=== PATIENT | male | born 1960 | race American Indian/Alaskan Native ===

== ENCOUNTER 2021-07-14 18:46 | Emergency (ER) | payer MEDICARE ==
[2021-07-14 23:49] LABS: Alanine Aminotransferase 22 units/L (7-56); Albumin 4.6 g/dL (3.9-5); BUN/Creatinine Ratio 18; Blood Urea Nitrogen 16 mg/dL (9-20); Calcium 9.3 mg/dL (8.4-10.2); Hemolysis Index 5
[2021-07-15 00:08] LABS: Hematocrit 41.1 % (35.5-45.6); Hemoglobin 13.6 gm/dl (11.8-15.2); Mean Corpuscular HGB Conc 33 % (32-34); Mean Corpuscular Volume 89 fl (84-94); Platelet Count 130 K/mm3 (140-440); Red Blood Count 4.64 M/mm3 (3.65-5.03); Red Cell Distribution Width 13.3 % (13.2-15.2)
[2021-07-15 07:05] LABS: Benzodiazepines Screen,Urine Negative; Cannabinoid Screen,Urine Negative; Methadone Screen,Urine Negative; Opiate Screen,Urine Negative
[2021-07-15 07:14] LABS: Bilirubin,Urine NEG (Negative); Blood,Urine NEG (Negative); Color,Urine Yellow (Yellow); Protein,Urine <15 mg/dL mg/dL (Negative); WBC,Urine < 1.0 /HPF (0.0-6.0)
[2021-07-15 07:20] LABS: Amphetamine Screen,Urine Positive; Cocaine Screen,Urine Positive
--- NOTE | 2021-07-15 08:10 | Emergency Department Report ---
ED Psych HPI - General Chief Complaint: Medical Clearance Stated Complaint: LT LEG PAIN/DETOX Time Seen by Provider: 07/15/21 07:43 Source: EMS Mode of arrival: Ambulatory - History of Present Illness Initial Comments: Mr. Noe is a 61-year-old male who reports history of depression and multiple substance abuse including alcohol, methamphetamine who presented wanting medical clearance to be able to go to rehab. Patient denies any suicide or homicidal ideation at this point. Patient also denies any chest pain, shortness of breath or palpitation. Patient said he has been abusing alcohol since he was 15 years old. He also mentioned that he has been into rehab twice with some improvement and sobriety for about 2 months. Patient denies any other modifying or associated factors. - Related Data Allergies Allergy/AdvReac Type Severity Reaction Status Date / Time No Known Allergies Allergy Unverified 07/14/21 20:00 ED Review of Systems ROS: Stated complaint: LT LEG PAIN/DETOX Other details as noted in HPI Comment: All other systems reviewed and negative Psychiatric: anxiety, depression, other (Wanting sobriety). denies: auditory hallucinations, visual hallucinations, homicidal thoughts, suicidal thoughts ED Past Medical Hx - Past Medical History Hx Hypertension: Yes Additional medical history: ETOH and drug abuse, gout, high cholesterol, GERD - Social History Smoking Status: Current Every Day Smoker Substance Use Type: Alcohol ED Physical Exam - General Limitations: No Limitations General appearance: alert, in no apparent distress - Head Head exam: Present: atraumatic, normocephalic, normal inspection - Eye Eye exam: Present: normal appearance - ENT ENT exam: Present: normal exam, normal orophraynx - Neck Neck exam: Present: normal inspection, full ROM. Absent: tenderness - Respiratory Respiratory exam: Present: normal lung sounds bilaterally. Absent: respiratory distress - Cardiovascular Cardiovascular Exam: Present: regular rate, normal rhythm, normal heart sounds - GI/Abdominal GI/Abdominal exam: Present: soft. Absent: tenderness - Extremities Exam Extremities exam: Present: normal inspection, full ROM, normal capillary refill - Back Exam Back exam: Present: normal inspection - Neurological Exam Neurological exam: Present: alert, altered, oriented X3 - Psychiatric Psychiatric exam: Present: normal affect, normal mood - Skin Skin exam: Present: warm, dry, intact, normal color ED Course Vital Signs 07/14/21 07/15/21 07/15/21 19:51 11:16 11:49 Temperature 98.6 F 97.7 F Pulse Rate 98 H 81 Respiratory 16 16 Rate Blood Pressure 165/117 134/76 [Right] O2 Sat by Pulse 98 100 99 Oximetry 07/15/21 13:02 Temperature 97.7 F Pulse Rate 81 Respiratory 16 Rate Blood Pressure 134/76 [Right] O2 Sat by Pulse 100 Oximetry - Reevaluation(s) Reevaluation #1: 07/15/21 08:08 Here with multiple drug abuse including cocaine and alcohol and methamphetamine and wanted medical clearance to go to rehab. We will go ahead and get psych routine labs that include urine drug screen and continue to monitor patient. Reevaluation #2: 07/15/21 12:21 Patient noted with elevated total creatinine kinase of 635 likely as a result of dehydration and drug use patient reassured and educated about illicit drug use. Patient plans to follow-up and willing to go to rehab. Also noted with slightly low potassium at 3.5 and sodium at 135 I encouraged patient to increase daily fluids and to take food that is in potassium. 07/15/21 12:23 We will go ahead and have case management specialist/manager social media consult on patient and continue to monitor. Reevaluation #3: 07/15/21 13:06 Patient was evaluated by psych and cleared to be discharged home and was given social contact for further evaluation and treatment ED Medical Decision Making - Lab Data Result diagrams: 07/14/21 23:06 07/14/21 23:06 Critical care attestation.: If time is entered above; I have spent that time in minutes in the direct care of this critically ill patient, excluding procedure time. ED Disposition Clinical Impression: Drug abuse, Cocaine abuse, Methamphetamine abuse, Alcohol abuse Disposition: 01 HOME / SELF CARE / HOMELESS Is pt being admited?: No Does the pt Need Aspirin: No Condition: Stable Instructions: Alcohol Use Disorder, Stimulant Use Disorder-Cocaine, Substance Use Disorder and Mental Illness, Alcohol Abuse and Dependence Information, Adult, Methamphetamines Use Disorder Additional Instructions: It is very important that you call and follow-up with your psychiatrist as needed Called the contact given to you as regarding your rehab Please do not hesitate to call or return to emergency room if your symptoms worsen Referrals: RUTHIE ADN MD [Staff Physician] - 3-5 Days Time of Disposition: 13:09
--- NOTE | 2021-07-15 13:22 | Consultation ---
History of Present Illness - Reason for Consult Consult date: 07/15/21 Reason for consult: mental health evaluation - History of Present Psychiatric Illness The patient is a 61 year old male with history of depression ad polysubstance abuse. The patient was seen this morning. He is calm, alert and oriented x3. He reports daily drug use which he reports doing for years now. He reports being at multiple psychiatric inpatient facilities for detox and rehab x 2. He reports longest sobriety period as 2 months. The patient reports stressors such as " disappointments, and rejection." The patient denies any current suicidal/homicidal ideation and denies hallucinations. PAST PSYCHIATRIC HISTORY Diagnoses:Depression, Polysubstance abuse Suicide attempts or Self-harm behavior: Denies Prior psychiatric hospitalizations:Denies Substance Abuse history:Meth, Cocaine, Opiate and alcohol Previous psychiatric medications tried: Unknown Outpatient treatment:unknown PAST MEDICAL HISTORY: none reported Family Psychiatric History: None reported or documented SOCIAL HISTORY Marital Status: Single Living Arrangements: Lives with sister Employment Status: Unemployed Access to guns/weapons: Denies Education: 8th grade History of Abuse: none reported Legal History: none reported REVIEW OF SYSTEMS Constitutional: Negative for weight loss ENT: Negative for stridor Respiratory: Negative for cough or hemoptysis All other systems reviewed and are negative MENTAL STATUS EXAMINATION General Appearance and Behavior: Age appropriate, good hygiene, wearing appropriate clothes, poor eye contact, cooperative polite with questioning. Cooperation: Participating/engaged, guarded Psychomotor Behavior: unremarkable and within normal limits Mood: Ok Affect and affective range: congruent with mood Thought Process: goal directed Thought Content: reality oriented Speech: Normal volume, Regular rate and rhythm, Intellectual Functioning: Average Suicidal Ideation: Denies Homicidal Ideation: Denies Hallucinations: Denies Delusions: None Impulse Control: Normal Insight and Judgment: Limited insight and judgment, Memory: Normal, Attention: Normal, Orientation: Alert, oriented, Assessment and Plan (1) Major depressive disorder (2)Polysubstance disorder Current Visit: Yes Status: Acute Treatment Continue home meds.. Start Sertraline 25mg po daily Sitter: Per primary Medical: Per primary Disposition: Do not recommend acute inpatient psychiatric treatment. junior mechanical engineer will provide patient with psychiatric outpatient resources. Case staffed with Dr. Leyva Will sign off. Thank you Medications and Allergies Medications and Allergies Allergies Allergy/AdvReac Type Severity Reaction Status Date / Time No Known Allergies Allergy Unverified 07/14/21 20:00 Home Medications Medication Instructions Recorded Confirmed Last Taken Type Sertraline [Zoloft] 25 mg PO QDAY 30 Days #30 tab 07/15/21 Unknown Rx Mental Status Exam - Vital signs Last Vital Signs Temp 97.7 F 07/15/21 13:02 Pulse 81 07/15/21 13:02 Resp 16 07/15/21 13:02 BP 134/76 07/15/21 13:02 Pulse Ox 100 07/15/21 13:02 Results Result Diagrams: 07/14/21 23:06 07/14/21 23:06 Abnormal lab results 07/14/21 07/14/21 07/14/21 Range/Units 23:06 23:06 23:06 Plt Count 130 L (140-440) K/mm3 Sodium 135 L (137-145) mmol/L Potassium 3.5 L (3.6-5.0) mmol/L Chloride 97.8 L (98-107) mmol/L Glucose 110 H (75-100) mg/dL Total Creatine Kinase 635 H (55-170) units/L Salicylates < 0.3 L (2.8-20.0) mg/dL Acetaminophen (10.0-30.0) ug/mL 07/14/21 Range/Units 23:06 Plt Count (140-440) K/mm3 Sodium (137-145) mmol/L Potassium (3.6-5.0) mmol/L Chloride (98-107) mmol/L Glucose (75-100) mg/dL Total Creatine Kinase (55-170) units/L Salicylates (2.8-20.0) mg/dL Acetaminophen 5.0 L (10.0-30.0) ug/mL All other labs normal.
[2021-07-15 15:02] VITALS: BP 136/90
== END 2021-07-15 15:51 | disposition home or self-care (01) ==
LOC: ED 18:46
DX: F14.10 Cocaine abuse, uncomplicated (principal); F15.20 Other stimulant dependence, uncomplicated; F10.10 Alcohol abuse, uncomplicated; F17.200 Nicotine dependence, unspecified, uncomplicated; I10 Essential (primary) hypertension
CPT/HCPCS: 36415; 80053; 80307; 80320; 81001; 82550; 83735; 85027; 99284; G0480

== ENCOUNTER 2021-07-30 10:06 | Emergency (ER) | payer SELFPAY ==
--- NOTE | 2021-07-30 11:42 | XRay Report ---
LEFT ANKLE 3 VIEWS INDICATION: pain. COMPARISON: None. IMPRESSION: No acute fracture or bone lesion is identified. Chronic healed fracture of the distal f ibula is suspected, correlate with history. There are mild to moderate degenerative changes at the ti biotalar joint. The hindfoot is otherwise unremarkable. There is also been previous internal fixation of the first metatarsal which is partially imaged. No soft tissue abnormality is appreciated. Signer Name: Alexis Boothe Jr, MD Signed: 07/30/2021 11:38 AM Workstation Name: [id number]
[2021-07-30] MEDS ORDERED: IBUPROFEN 800 MG TAB PO ONE (11:51)
--- NOTE | 2021-07-30 11:52 | Emergency Department Report ---
ED Lower Extremity HPI - General Chief Complaint: Extremity Injury, Lower Stated Complaint: ANKLE PAIN Time Seen by Provider: 07/30/21 11:47 Source: patient Mode of arrival: Ambulatory Limitations: No Limitations - History of Present Illness Initial Comments: Patient is a 61-year-old male that comes to the ER with what he says is acute left ankle pain. However, he said prior bunion surgery to that foot. And he has a black ankle brace on. He is requesting an MRI. He states that he slipped and fell hurting his ankle. He has no swelling. He is neurovascularly intact. He denies any other injury. He tells me that he is in a program learning to drive. See past medical history. MD Complaint: ankle injury Injury: Ankle: Left Place: home Severity: mild Severity scale (0 -10): 2 Improves With: nothing Worsens With: nothing Context: fall - Related Data Previous Rx's Medication Instructions Recorded Last Taken Type Sertraline [Zoloft] 25 mg PO QDAY 30 Days #30 tab 07/15/21 Unknown Rx Allergies Allergy/AdvReac Type Severity Reaction Status Date / Time No Known Allergies Allergy Unverified 07/14/21 20:00 ED Review of Systems ROS: Stated complaint: ANKLE PAIN Other details as noted in HPI Comment: All other systems reviewed and negative ED Past Medical Hx - Past Medical History Previous Medical History?: Yes Hx Hypertension: Yes Additional medical history: ETOH and drug abuse, gout, high cholesterol, GERD - Surgical History Past Surgical History?: Yes - Family History Family history: no significant - Social History Smoking Status: Current Every Day Smoker Substance Use Type: Alcohol - Medications Home Medications: Home Medications Medication Instructions Recorded Confirmed Last Taken Type Sertraline [Zoloft] 25 mg PO QDAY 30 Days #30 tab 07/15/21 Unknown Rx ED Physical Exam - General Limitations: No Limitations General appearance: alert, in no apparent distress - Head Head exam: Present: atraumatic, normocephalic - Eye Eye exam: Present: normal appearance - ENT ENT exam: Present: mucous membranes moist - Neck Neck exam: Present: normal inspection - Respiratory Respiratory exam: Present: normal lung sounds bilaterally. Absent: respiratory distress - Cardiovascular Cardiovascular Exam: Present: regular rate, normal rhythm. Absent: systolic murmur, diastolic murmur, rubs, gallop - GI/Abdominal GI/Abdominal exam: Present: soft, normal bowel sounds - Rectal Rectal exam: Present: deferred - Extremities Exam Extremities exam: Present: normal inspection - Back Exam Back exam: Present: normal inspection - Neurological Exam Neurological exam: Present: alert, oriented X3 - Psychiatric Psychiatric exam: Present: normal affect, normal mood - Skin Skin exam: Present: warm, dry, intact, normal color. Absent: rash ED Course Vital Signs 07/30/21 10:36 Temperature 98.2 F Pulse Rate 76 Respiratory 16 Rate Blood Pressure 136/89 [Right] O2 Sat by Pulse 99 Oximetry ED Lower Extremity MDM - Radiology Data Radiology results: report reviewed, image reviewed nap - Medical Decision Making X-ray negative Ambulatory neurovascularly intact Requesting MRI. I suspect that this is related to his chronic foot issues. I educated patient that we do not do MRIs emergently in the ER. He has been referral to orthopedics. Patient ambulatory to fast track with provider Patient discharged home with discharge plan of care including diet, activities, medications and follow-up. He verbalizes understanding of plan of care. Vital Signs 07/30/21 10:36 Temperature 98.2 F Pulse Rate 76 Respiratory 16 Rate Blood Pressure 136/89 [Right] O2 Sat by Pulse 99 Oximetry - Differential Diagnosis Rule out fracture Critical care attestation.: If time is entered above; I have spent that time in minutes in the direct care of this critically ill patient, excluding procedure time. ED Disposition Clinical Impression: Ankle pain Qualifiers: Chronicity: unspecified Laterality: left Qualified Code(s): M25.572 - Pain in left ankle and joints of left foot Disposition: 01 HOME / SELF CARE / HOMELESS Is pt being admited?: No Does the pt Need Aspirin: No Condition: Stable Instructions: Ankle Pain Additional Instructions: Alternate warm and cool compresses to ankle [id number] Motrin or Tylenol for pain Follow-up with orthopedics as we discussed. Have given you referral below Diet and activity as tolerated Referrals: ALIVIA BEASLEY MD [Staff Physician] - 3-5 Days Time of Disposition: 11:53
[2021-07-30 12:30] VITALS: BP 122/82
== END 2021-07-30 12:32 | disposition home or self-care (01) ==
LOC: ED 10:06
DX: M25.572 Pain in left ankle and joints of left foot (principal); F17.200 Nicotine dependence, unspecified, uncomplicated; F10.20 Alcohol dependence, uncomplicated; I10 Essential (primary) hypertension
CPT/HCPCS: 99283

== ENCOUNTER 2021-10-06 23:07 | Emergency (ER) | payer MEDICARE | END 2021-10-06 23:45 | disposition left against medical advice (07) | LOC: ED 23:07 | DX: L29.9 Pruritus, unspecified (principal); Z53.21 Procedure and treatment not carried out due to patient leaving prior to being seen by health care provider ==

== ENCOUNTER 2021-10-22 14:28 | Outpatient (CLI) | payer MEDICARE | END 2021-10-22 14:29 | disposition home or self-care (01) | LOC: LAB 14:28 | PROVIDERS: ATTEND Student in an Organized Health Care Education/Training Program | DX: A53.9 Syphilis, unspecified (principal) | CPT/HCPCS: 36415; 86592 ==